=== PATIENT | male | born 1995 ===

== ENCOUNTER 2019-04-17 19:17 | Emergency (ER) | payer SELFPAY ==
--- NOTE | 2019-04-17 19:45 | ED ---
Abdominal Pain/Male - HPI Summary HPI Summary: 23 yr old male with the complaint of right upper quadrant abdominal pain, light colored poorly formed stools, and decreased BM over the past 3 weeks. He has pain that is moderate. Non radiating. No vomiting. He has a 24 yr old sister that had the same issues and she had a gallbladder issue. - History of Current Complaint Chief Complaint: UCGI Stated Complaint: BOWEL CONCERN, ABD PAIN Time Seen by Provider: 04/17/19 19:35 Pain Intensity: 6 - Allergies/Home Medications Allergies/Adverse Reactions: Allergies Allergy/AdvReac Type Severity Reaction Status Date / Time No Known Allergies Allergy Verified 04/17/19 19:22 Home Medications: Home Medications NK [No Home Medications Reported] 04/17/19 [History Confirmed 04/17/19] PMH/Surg Hx/FS Hx/Imm Hx Infectious Disease History: No Infectious Disease History: Denies: Traveled Outside the [place] in Last 30 Days - Family History Known Family History: Positive: None - Social History Occupation: Employed Full-time Alcohol Use: None Substance Use Type: Reports: None Smoking Status (MU): Never Smoked Tobacco Review of Systems Constitutional: Negative Positive: Abdominal Pain All Other Systems Reviewed And Are Negative: Yes Physical Exam Triage Information Reviewed: Yes Vital Signs On Initial Exam: Initial Vitals Temp Pulse Resp BP Pulse Ox 99.3 F 111 16 122/87 98 04/17/19 19:24 04/17/19 19:24 04/17/19 19:24 04/17/19 19:24 04/17/19 19:24 Vital Signs Reviewed: Yes Appearance: Positive: Well-Appearing, No Pain Distress Skin: Positive: Warm, Skin Color Reflects Adequate Perfusion Head/Face: Positive: Normal Head/Face Inspection Eyes: Positive: EOMI ENT: Positive: Normal ENT inspection Neck: Positive: Nontender Respiratory/Lung Sounds: Positive: Clear to Auscultation, Breath Sounds Present Cardiovascular: Positive: RRR. Negative: Murmur Abdomen Description: Positive: Other: - mild right upper quadrant tenderness.. Negative: Distended Musculoskeletal: Positive: Strength/ROM Intact Neurological: Positive: Sensory/Motor Intact, Alert, Oriented to Person Place, Time, CN Intact II-III, Normal Gait, Speech Normal Psychiatric: Positive: Normal Diagnostics - Vital Signs Vital Signs Temp Pulse Resp BP Pulse Ox 04/17/19 19:24 99.3 F 111 16 122/87 98 - Laboratory Lab Statement: Any lab studies that have been ordered have been reviewed, and results considered in the medical decision making process. Abdominal Pain Male Course/Dx - Course Course Of Treatment: 23 yr old male with right upper quadrant pain, light colored stools. Plan he will go to the ER for further work up now. - Diagnoses Provider Diagnoses: Right upper quadrant abdominal pain Discharge ED - Sign-Out/Discharge Documenting (check all that apply): Patient Departure All imaging exams completed and their final reports reviewed: No Studies - Discharge Plan Condition: Good Disposition: HOME-RECOMMEND TO ED Patient Education Materials: Acute Abdominal Pain (DC) Referrals: No Primary Care Phys,NOPCP [Primary Care Provider] - [facility] [Outside] Additional Instructions: YOU NEED TO GO TO THE ER FOR FURTHER EVALUATION OF YOUR ABDOMINAL PAIN IMMEDIATELY AFTER YOU LEAVE HERE. - Billing Disposition and Condition Condition: GOOD Disposition: Home-Recommend to ED
== END 2019-04-17 19:50 | disposition home health service (06) ==
LOC: UCCORT 19:17
DX: R10.11 Right upper quadrant pain (principal); R19.5 Other fecal abnormalities
CPT/HCPCS: 99202; G0463